=== PATIENT | male | born 2000 | race American Indian/Alaskan Native ===

== ENCOUNTER 2021-06-03 21:51 | Inpatient (IN) | payer SELFPAY ==
[2021-06-03] MEDS ORDERED: ALBUTEROL 2.5 MG/3 ML NEBU IH ONE (21:59)
[2021-06-03] MEDS ORDERED: IPRATROPIUM 0.02% NEBU 2.5 ML IH ONE (21:59)
--- NOTE | 2021-06-03 22:02 | Emergency Department Report ---
History of Present Illness - General Chief Complaint: Overdose Stated Complaint: OVERDOSE Time Seen by Provider: 06/03/21 21:58 Source: patient, EMS Mode of arrival: Stretcher Limitations: No Limitations - History of Present Illness Initial Comments: Chief complaint: "I want a little too hard." HPI: This is a 21-year-old male with history of asthma] who presents status post accidental overdose of Percocet. He took approximately 30 mg of Percocet. He became unresponsive. Oxygen saturation was low according to EMS. He received 2 mg of Narcan via EMS. He awakened immediately. His family member called 911. He has now awake and alert. He is apologetic for his actions. He is not suicidal. He only wanted to get high. He ingests Percocets on a monthly basis. He denies use of alcohol or any other recreational drugs. He denies suicidal ideation. He denies shortness of breath. Patient had persistent hypoxia after becoming awake according to EMS. Tatiana arrived to the emergency department. She gave additional history at the bedside. She stated that patient became unresponsive with deep snoring. She did witness the ingestion of 1 pill. Complaint: accidental overdose -: Sudden, This evening Context: Accidental Overdose: wanted to get high Treatments Prior to Arrival: oxygen, narcan - Related Data Allergies Allergy/AdvReac Type Severity Reaction Status Date / Time No Known Allergies Allergy Verified 06/03/21 22:18 ED Review of Systems ROS: Stated complaint: OVERDOSE Other details as noted in HPI Comment: All other systems reviewed and negative Constitutional: denies: chills, fever, malaise Respiratory: denies: cough, shortness of breath Cardiovascular: denies: chest pain Gastrointestinal: denies: abdominal pain, nausea, vomiting Psychiatric: denies: auditory hallucinations, visual hallucinations, homicidal thoughts, suicidal thoughts Hematological/Lymphatic: denies: as per HPI ED Past Medical Hx - Past Medical History Previous Medical History?: Yes Hx Hypertension: Yes Hx Psychiatric Treatment: Yes (DEPRESSION) Additional medical history: BRONCHITIS - Surgical History Past Surgical History?: No - Social History Smoking Status: Never Smoker Substance Use Type: Prescribed ED Physical Exam - General Limitations: No Limitations General appearance: alert, in no apparent distress - Head Head exam: Present: atraumatic, normocephalic - Eye Eye exam: Present: normal appearance - ENT ENT exam: Present: mucous membranes moist - Neck Neck exam: Present: normal inspection, full ROM - Respiratory Respiratory exam: Present: normal lung sounds bilaterally. Absent: respiratory distress, wheezes, rales - Cardiovascular Cardiovascular Exam: Present: regular rate, normal rhythm, normal heart sounds. Absent: systolic murmur, diastolic murmur, rubs, gallop - GI/Abdominal GI/Abdominal exam: Present: soft, normal bowel sounds. Absent: distended, tenderness, guarding, rebound - Rectal Rectal exam: Present: deferred - Extremities Exam Extremities exam: Present: normal inspection - Back Exam Back exam: Present: normal inspection - Neurological Exam Neurological exam: Present: alert, oriented X3 - Psychiatric Psychiatric exam: Present: normal affect, normal mood - Skin Skin exam: Present: warm, dry, intact, normal color. Absent: rash ED Course Vital Signs 06/03/21 06/03/21 06/03/21 22:01 22:30 22:32 Temperature 98.3 F Pulse Rate 92 H 92 H Pulse Rate [ 93 H Anterior Bilateral Throughout] Respiratory 14 21 Rate Respiratory 16 Rate [Anterior Bilateral Throughout] Blood Pressure 124/74 Blood Pressure 126/77 [Left] O2 Sat by Pulse 85 89 Oximetry 06/03/21 06/03/21 06/03/21 22:45 23:00 23:15 Temperature Pulse Rate 91 H 95 H 99 H Pulse Rate [ Anterior Bilateral Throughout] Respiratory 20 21 26 H Rate Respiratory Rate [Anterior Bilateral Throughout] Blood Pressure 124/71 115/63 137/71 Blood Pressure [Left] O2 Sat by Pulse 90 90 92 Oximetry 06/03/21 06/03/21 06/03/21 23:30 23:45 23:47 Temperature Pulse Rate 100 H 100 H 103 H Pulse Rate [ Anterior Bilateral Throughout] Respiratory 29 H 23 25 H Rate Respiratory Rate [Anterior Bilateral Throughout] Blood Pressure 127/73 127/67 127/67 Blood Pressure [Left] O2 Sat by Pulse 90 90 90 Oximetry 06/04/21 06/04/21 06/04/21 00:00 00:15 00:30 Temperature Pulse Rate 95 H 99 H 99 H Pulse Rate [ Anterior Bilateral Throughout] Respiratory 27 H 31 H 23 Rate Respiratory Rate [Anterior Bilateral Throughout] Blood Pressure 135/69 127/70 114/64 Blood Pressure [Left] O2 Sat by Pulse 93 96 94 Oximetry 06/04/21 06/04/21 06/04/21 00:45 01:00 01:15 Temperature Pulse Rate 93 H 95 H 86 Pulse Rate [ Anterior Bilateral Throughout] Respiratory 20 20 19 Rate Respiratory Rate [Anterior Bilateral Throughout] Blood Pressure 125/62 113/63 113/63 Blood Pressure [Left] O2 Sat by Pulse 91 92 Oximetry - Reevaluation(s) Reevaluation #1: 06/03/21 22:30 Oxygen saturation 81% on room air, 90% on 5 L nasal cannula. Respiratory therapy was called for bronchodilator treatment. Reevaluation #2: 06/03/21 22:45 Oxygen saturation 92% with nebulizer treatment in process, lethargic but arousable snoring when asleep 2 mg Narcan ordered Reevaluation #3: 06/04/21 02:36 Arousable. Protecting airway. Oxygen saturation 90% on 4 L nasal cannula ED Medical Decision Making - Lab Data Result diagrams: 06/03/21 22:47 06/03/21 22:47 - Radiology Data Radiology results: report reviewed Patient Name: ZULEMA BOONE Gender: Male Date of : 2000 Home Phone: Referring Provider: ORALIA BELL Organization: [facility] Accession Number: [id number] Requested Date: June 03, 2021 22:29 Report Status: Final Requested Procedure: 1 Procedure Description: XR chest 1V ap Modality: XR Findings Reporting MD: Sky Devine Dictation Time: June 03, 2021 22:00 Insulation Installer: Not available Deep Submergence Vehicle Operator Date: CHEST 1 VIEW 06/03/2021 10:33 PM INDICATION / CLINICAL INFORMATION: Hypoxia recent overdose. COMPARISON: 07/03/2018. FINDINGS: SUPPORT DEVICES: None. HEART / MEDIASTINUM: No significant abnormality. LUNGS / PLEURA: New soft tissue lesion right paratracheal region measuring 4.3 x 3.5 cm. This may represent an enlarged node. No pneumothorax. ADDITIONAL FINDINGS: No significant additional findings. IMPRESSION: New lesion right paratracheal region. Follow-up CT chest with contrast is recommended. Signer Name: Sky Devine MD Signed: 06/03/2021 10:00 PM Workstation Name: [id number] Patient Name: ZULEMA BOONE Gender: Male Date of : 2000 Referring Provider: ORALIA BELL Organization: [facility] Accession Number: [id number] Requested Date: June 03, 2021 02:07 Report Status: Final Requested Procedure: 1 Procedure Description: CT chest w con Modality: CT Findings Reporting MD: Sky Devine Dictation Time: June 04, 2021 01:22 Insulation Installer: Not available Deep Submergence Vehicle Operator Date: CT CHEST WITH CONTRAST INDICATION / CLINICAL INFORMATION: Soft tissue lesion, RT paratracheal region seen on X-Ray, Hypoxia. TECHNIQUE: Axial CT images were obtained through the chest after IV contrast. All CT scans at this location are performed using CT dose reduction for ALARA by means of automated exposure control. COMPARISON: Chest x-ray aerated the same day. FINDINGS: HEART: No significant abnormality. CORONARY ARTERY CALCIFICATION: None. THORACIC AORTA: No significant abnormality. MEDIASTINUM / TEREZA: Small/moderate hiatal hernia. PLEURA: No pleural effusion. No pneumothorax. LUNGS: Patchy bilateral infiltrates are seen left greater than right. No lung mass is identified. This is likely artifactual. ADDITIONAL FINDINGS: None. UPPER ABDOMEN: No significant abnormality. SKELETAL SYSTEM: No significant abnormality. IMPRESSION: 1. Bilateral pneumonia left greater than right. 2. No lung mass. Signer Name: Sky Devine MD Signed: 06/04/2021 1:22 AM Workstation Name: [id number] - Medical Decision Making Acute respiratory failure hypoxia due to naloxone induced pulmonary edema versus aspiration pneumonitis. Patient given IV Levaquin in the emergency department. Patient continues to require 4 L nasal cannula in spite improved level of consciousness. No lung mass on CT scan. Patient is admitted to hospital service. Critical Care Time: Yes Critical care time in (mins) excluding proc time.: 40 Critical care attestation.: If time is entered above; I have spent that time in minutes in the direct care of this critically ill patient, excluding procedure time. 40 minutes of critical care time excluding procedures were used in the care of the patient. I came immediately to the bedside upon patient's arrival. I obtained history from EMS at the bedside. I discussed treatment plan with the [facility] team members. I reviewed electronic record. I kept the family member informed. Patient required multiple interventions and reassessments. ED Disposition Clinical Impression: Acute respiratory failure with hypoxia, Aspiration pneumonitis, Acute noncar diogenic pulmonary edema, Opioid overdose, Accidental overdose Disposition: 09 ADMITTED INPATIENT Is pt being admited?: Yes Does the pt Need Aspirin: No Condition: Fair Instructions: Pulmonary Edema (ED) Referrals: PRIMARY CARE, [Primary Care Provider] - 3-5 Days
[2021-06-03] MEDS ORDERED: NALOXONE 0.4 MG/1 ML INJ IV ONE ×2 (22:44→23:46)
[2021-06-03] MEDS ORDERED: NALOXONE 2 MG/2 ML INJ IV ONE ×2 (23:00→23:15)
--- NOTE | 2021-06-03 23:05 | XRay Report ---
CHEST 1 VIEW 06/03/2021 10:33 PM INDICATION / CLINICAL INFORMATION: Hypoxia recent overdose. COMPARISON: 07/03/2018. FINDINGS: SUPPORT DEVICES: None. HEART / MEDIASTINUM: No significant abnormality. LUNGS / PLEURA: New soft tissue lesion right paratracheal region measuring 4.3 x 3.5 cm. This may rep resent an enlarged node. No pneumothorax. ADDITIONAL FINDINGS: No significant additional findings. IMPRESSION: New lesion right paratracheal region. Follow-up CT chest with contrast is recommended. Signer Name: Sky Devine MD Signed: 06/03/2021 11:00 PM Workstation Name: [id number]
[2021-06-03 23:17] LABS: Basophils # (Auto) 0.1 K/mm3 (0.0-0.1); Eosinophils % (Auto) 0.2 % (0.0-4.3); Hematocrit 51.6 % (35.5-45.6); Hemoglobin 16.3 gm/dl (11.8-15.2); Lymphocytes % (Auto) 22.8 % (13.4-35.0); Mean Corpuscular HGB Conc 32 % (32-34); Monocytes # (Auto) 0.5 K/mm3 (0.0-0.8); Monocytes % (Auto) 4.1 % (0.0-7.3); Platelet Count 341 K/mm3 (140-440); Red Blood Count 5.78 M/mm3 (3.65-5.03)
[2021-06-03 23:20] LABS: Basophils % (Auto) 0.8 % (0.0-1.8); Mean Corpuscular Volume 89 fl (84-94); Mean Platelet Volume 8.6 fl (6-12); Red Cell Distribution Width 14.2 % (13.2-15.2)
[2021-06-03 23:35] LABS: Calcium 9.1 mg/dL (8.4-10.2)
[2021-06-04] MEDS ORDERED: ONDANSETRON 4 MG/2 ML INJ IV ONE (01:49)
[2021-06-04 02:20] LABS: Band Neutrophils # (Manual) 0.1 K/mm3; Total Cells Counted 100
[2021-06-04 02:21] LABS: Myelocytes # (Manual) 43.4 K/mm3; Promyelocytes # (Manual) 43.4 K/mm3
[2021-06-04 02:22] LABS: Giant Platelets Few; Platelet Estimate Consistent w Auto; RBC Morphology Normal
--- NOTE | 2021-06-04 02:26 | Cat Scan Report ---
CT CHEST WITH CONTRAST INDICATION / CLINICAL INFORMATION: Soft tissue lesion, RT paratracheal region seen on X-Ray, Hypoxia. TECHNIQUE: Axial CT images were obtained through the chest after IV contrast. All CT scans at this [facility] are performed using CT dose reduction for ALARA by means of automated exposure control. COMPARISON: Chest x-ray aerated the same day. FINDINGS: HEART: No significant abnormality. CORONARY ARTERY CALCIFICATION: None. THORACIC AORTA: No significant abnormality. MEDIASTINUM / TEREZA: Small/moderate hiatal hernia. PLEURA: No pleural effusion. No pneumothorax. LUNGS: Patchy bilateral infiltrates are seen left greater than right. No lung mass is identified. Thi s is likely artifactual. ADDITIONAL FINDINGS: None. UPPER ABDOMEN: No significant abnormality. SKELETAL SYSTEM: No significant abnormality. IMPRESSION: 1. Bilateral pneumonia left greater than right. 2. No lung mass. Signer Name: Sky Devine MD Signed: 06/04/2021 2:22 AM Workstation Name: [id number]
[2021-06-04] MEDS ORDERED: ACETAMINOPHEN 325 MG TAB PO PRN (05:02)
[2021-06-04] MEDS ORDERED: oxyCODONE /ACETAMINOPHEN 5-325MG TAB PO PRN (05:02)
[2021-06-04] MEDS ORDERED: HYDROmorphone 1 MG/1 ML INJ IV PRN (05:02)
[2021-06-04] MEDS ORDERED: ALBUTEROL 2.5 MG/3 ML NEBU IH PRN (05:02)
[2021-06-04] MEDS ORDERED: ONDANSETRON 4 MG/2 ML INJ IV PRN (05:02)
--- NOTE | 2021-06-04 05:11 | History and Physical Report ---
History of Present Illness Date of examination: 06/04/21 Date of admission: 06/04/21 Chief complaint: Overdose History of present illness: 21-year-old male with history of asthma] who presents status post accidental overdose of Percocet. He took approximately 30 mg of Percocet. He became unresponsive. Oxygen saturation was low according to EMS. He received 2 mg of Narcan via EMS. He awakened immediately. His family member called 911. He has now awake and alert. He is apologetic for his actions. He is not suicidal. He only wanted to get high. He ingests Percocets on a monthly basis. He denies use of alcohol or any other recreational drugs. He denies suicidal ideation. He denies shortness of breath. Patient had persistent hypoxia after becoming awake according to EMS. In the emergency room patient CT scan of the chest showed bilateral pneumonia left greater than right. No lung mass. WBC is 13.1 initial O2 sat was 81 % on room air, 90 % on 5 L of nasal cannula. Patient is found to have acute respiratory failure with hypoxia, aspiration pneumonitis acute noncardiac genic pulmonary edema, opiate overdose.Patient given IV Levaquin in the emergency department. Patient continues to require 4 L nasal cannula in spite improved level of consciousness. Med rec is not available Past History Past Medical History: hypertension, other (Depression, bronchitis) Medications and Allergies Allergies Allergy/AdvReac Type Severity Reaction Status Date / Time No Known Allergies Allergy Verified 06/03/21 22:18 Review of Systems All systems: negative Constitutional: lethargy Cardiovascular: shortness of breath, dyspnea on exertion Respiratory: shortness of breath, dyspnea on exertion Neurological: change in mentation, other (Unresponsiveness) Exam - Constitutional Vitals: Temp Pulse Resp BP Pulse Ox 98.3 F 89 16 119/74 97 06/03/21 22:01 06/04/21 03:45 06/04/21 03:45 06/04/21 03:45 06/04/21 03:45 Results - Labs CBC & Chem 7: 06/03/21 22:47 06/03/21 22:47 Labs: Laboratory Last Values WBC 13.1 K/mm3 (4.5-11.0) H 06/03/21 22:47 RBC 5.78 M/mm3 (3.65-5.03) H 06/03/21 22:47 Hgb 16.3 gm/dl (11.8-15.2) H 06/03/21 22:47 Hct 51.6 % (35.5-45.6) H 06/03/21 22:47 MCV 89 fl (84-94) 06/03/21 22:47 MCH 28 pg (28-32) 06/03/21 22:47 MCHC 32 % (32-34) 06/03/21 22:47 RDW 14.2 % (13.2-15.2) 06/03/21 22:47 Plt Count 341 K/mm3 (140-440) 06/03/21 22:47 Lymph % (Auto) 22.8 % (13.4-35.0) 06/03/21 22:47 Rice % (Auto) 4.1 % (0.0-7.3) 06/03/21 22:47 Eos % (Auto) 0.2 % (0.0-4.3) 06/03/21 22:47 Baso % (Auto) 0.8 % (0.0-1.8) 06/03/21 22:47 Lymph # (Auto) 3.0 K/mm3 (1.2-5.4) 06/03/21 22:47 Rice # (Auto) 0.5 K/mm3 (0.0-0.8) 06/03/21 22:47 Baso # (Auto) 0.1 K/mm3 (0.0-0.1) 06/03/21 22:47 Add Manual Diff Complete 06/03/21 22:47 Total Counted 100 06/03/21 22:47 Seg Neutrophils % 72.1 % (40.0-70.0) H 06/03/21 22:47 Seg Neuts % (Manual) 70.0 % (40.0-70.0) 06/03/21 22:47 Band Neutrophils % 1.0 % 06/03/21 22:47 Lymphocytes % (Manual) 26.0 % (13.4-35.0) 06/03/21 22:47 Monocytes % (Manual) 3.0 % (0.0-7.3) 06/03/21 22:47 Nucleated RBC % Not Reportable 06/03/21 22:47 Seg Neutrophils # 9.5 K/mm3 (1.8-7.7) H 06/03/21 22:47 Seg Neutrophils # Man 9.2 K/mm3 (1.8-7.7) H 06/03/21 22:47 Band Neutrophils # 0.1 K/mm3 06/03/21 22:47 Lymphocytes # (Manual) 3.4 K/mm3 (1.2-5.4) 06/03/21 22:47 Abs React Lymphs (Man) 0.0 K/mm3 06/03/21 22:47 Monocytes # (Manual) 0.4 K/mm3 (0.0-0.8) 06/03/21 22:47 Eosinophils # (Manual) 0.0 K/mm3 (0.0-0.4) 06/03/21 22:47 Basophils # (Manual) 0.0 K/mm3 (0.0-0.1) 06/03/21 22:47 Metamyelocytes # 0.0 K/mm3 06/03/21 22:47 Myelocytes # 43.4 K/mm3 06/03/21 22:47 Promyelocytes # 43.4 K/mm3 06/03/21 22:47 Blast Cells # 43.4 K/mm3 06/03/21 22:47 WBC Morphology Not Reportable 06/03/21 22:47 Hypersegmented Neuts Not Reportable 06/03/21 22:47 Hyposegmented Neuts Not Reportable 06/03/21 22:47 Hypogranular Neuts Not Reportable 06/03/21 22:47 Smudge Cells Not Reportable 06/03/21 22:47 Toxic Granulation Not Reportable 06/03/21 22:47 Toxic Vacuolation Not Reportable 06/03/21 22:47 Dohle Bodies Not Reportable 06/03/21 22:47 Pelger-Huet Anomaly Not Reportable 06/03/21 22:47 Pan Rods Not Reportable 06/03/21 22:47 Platelet Estimate Consistent w auto 06/03/21 22:47 Clumped Platelets Not Reportable 06/03/21 22:47 Plt Clumps, EDTA Not Reportable 06/03/21 22:47 Large Platelets Not Reportable 06/03/21 22:47 Giant Platelets Few 06/03/21 22:47 Platelet Satelliting Not Reportable 06/03/21 22:47 Plt Morphology Comment Not Reportable 06/03/21 22:47 RBC Morphology Normal 06/03/21 22:47 Dimorphic RBCs Not Reportable 06/03/21 22:47 Polychromasia Not Reportable 06/03/21 22:47 Hypochromasia Not Reportable 06/03/21 22:47 Poikilocytosis Not Reportable 06/03/21 22:47 Anisocytosis Not Reportable 06/03/21 22:47 Microcytosis Not Reportable 06/03/21 22:47 Macrocytosis Not Reportable 06/03/21 22:47 Spherocytes Not Reportable 06/03/21 22:47 Pappenheimer Bodies Not Reportable 06/03/21 22:47 Sickle Cells Not Reportable 06/03/21 22:47 Target Cells Not Reportable 06/03/21 22:47 Tear Drop Cells Not Reportable 06/03/21 22:47 Ovalocytes Not Reportable 06/03/21 22:47 Helmet Cells Not Reportable 06/03/21 22:47 Art-Flint Bodies Not Reportable 06/03/21 22:47 Bryant Rings Not Reportable 06/03/21 22:47 Oscar Cells Not Reportable 06/03/21 22:47 Bite Cells Not Reportable 06/03/21 22:47 Crenated Cell Not Reportable 06/03/21 22:47 Elliptocytes Not Reportable 06/03/21 22:47 Acanthocytes (Spur) Not Reportable 06/03/21 22:47 Rouleaux Not Reportable 06/03/21 22:47 Hemoglobin C Crystals Not Reportable 06/03/21 22:47 Schistocytes Not Reportable 06/03/21 22:47 Malaria parasites Not Reportable 06/03/21 22:47 Waylon Bodies Not Reportable 06/03/21 22:47 Hem Pathologist Commnt No 06/03/21 22:47 Sodium 138 mmol/L (137-145) 06/03/21 22:47 Potassium 3.9 mmol/L (3.6-5.0) 06/03/21 22:47 Chloride 98.9 mmol/L (98-107) 06/03/21 22:47 Carbon Dioxide 25 mmol/L (22-30) 06/03/21 22:47 Anion Gap 18 mmol/L 06/03/21 22:47 BUN 13 mg/dL (9-20) 06/03/21 22:47 Creatinine 1.5 mg/dL (0.8-1.3) H 06/03/21 22:47 Estimated GFR 58 ml/min 06/03/21 22:47 BUN/Creatinine Ratio 9 % 06/03/21 22:47 Glucose 221 mg/dL (75-100) H 06/03/21 22:47 Calcium 9.1 mg/dL (8.4-10.2) 06/03/21 22:47 Salicylates < 0.3 mg/dL (2.8-20.0) L 06/03/21 22:47 Acetaminophen 5.0 ug/mL (10.0-30.0) L 06/03/21 22:47 - Imaging and Cardiology Chest x-ray: report reviewed CT scan - chest: report reviewed Assessment and Plan VTE prophylaxis?: Chemical Plan of care discussed with patient/family: Yes - Patient Problems (1) Acute respiratory failure with hypoxia Current Visit: Yes Status: Acute Plan to address problem: Admit the patient to the medical telemetry. Oxygen via nasal cannula 3 L/min. Albuterol via nebulizer every 4 hours as needed. DuoNeb by nebulizer every 4 hours. Rocephin 2 g IV daily and Zithromax 500 mg IV daily. Blood cultures sputum culture. Will consult pulmonary if needed (2) Acute noncardiogenic pulmonary edema Current Visit: Yes Status: Acute Plan to address problem: Oxygen per nasal cannula 3 L/min. DuoNeb by nebulizer every 4 hours. Lasix 20 milligrams IV daily. Echocardiogram. Fluid restriction. Consult cardiology if needed (3) Aspiration pneumonitis Current Visit: Yes Status: Acute Plan to address problem: Oxygen via nasal cannula 3 L/min. Albuterol via nebulizer every 4 hours as needed. DuoNeb by nebulizer every 4 hours. Rocephin 2 g IV daily and Zithromax 500 mg IV daily. Blood cultures sputum culture. Will consult pulmonary if needed (4) Opioid overdose Current Visit: Yes Status: Acute Plan to address problem: Patient got Narcan. Patient is awake alert now we'll monitor the patient closely we counseled regarding quit taking opioid (5) DVT prophylaxis Current Visit: Yes Status: Acute Plan to address problem: Heparin 5000 units subcu every 8 hours for DVT prophylaxis. Pepcid 20 mg p.o. twice daily for GI prophylaxis. Patient is a full code
[2021-06-04 05:31] LABS: Amphetamine Screen,Urine Negative; Benzodiazepines Screen,Urine Negative; Cocaine Screen,Urine Negative; Methadone Screen,Urine Negative; Opiate Screen,Urine Negative
[2021-06-04 06:00] LABS: Cannabinoid Screen,Urine Positive
[2021-06-04] MEDS ORDERED: AZITHROMYCIN/NS 500 MG/250 ML 500 MG/250 ML BAG IV SCH (06:00)
[2021-06-04] MEDS ORDERED: cefTRIAXone/NS 2 GM/100 ML 2 GM/100 ML BAG IV SCH (06:00)
[2021-06-04] MEDS ORDERED: HEPARIN 5,000 UNIT/1 ML VIAL SUB-Q SCH (06:00)
[2021-06-04] MEDS ORDERED: IPRATROPIUM/ALBUTEROL SULFATE 3 ML AMPUL.NEB IH SCH (08:00)
--- NOTE | 2021-06-04 08:40 | Discharge Summary ---
Providers - Providers Date of Admission: 06/04/21 05:02 Attending physician: LISA LAMA MD Primary care physician: WELDING PROCESS SPECIALIST Hospitalization Condition: Fair Disposition: 01 HOME / SELF CARE / HOMELESS Exam - Constitutional Vitals: Temp Pulse Resp BP Pulse Ox 98.3 F 112 H 19 121/71 97 06/03/21 22:01 06/04/21 07:31 06/04/21 07:31 06/04/21 07:31 06/04/21 07:15 Plan Activity: advance as tolerated, fall precautions Diet: low fat Wound: per your surgeon's advice Special Instructions: record daily weights, smoking cessation Care Plan Goals: Must quit illicit drug use Follow up with: PRIMARY CARE, [Primary Care Provider] - 3-5 Days Prescriptions: levoFLOXacin [Levaquin] 750 mg PO QDAY #7 tablet
[2021-06-04] MEDS ORDERED: FAMOTIDINE 20 MG TAB PO SCH (10:00)
[2021-06-04] MEDS ORDERED: FUROSEMIDE 20 MG/2 ML INJ IV SCH (10:00)
[2021-06-04 10:07] LABS: C-Reactive Protein 7.7 mg/dL (0.00-1.30)
[2021-06-04 11:19] VITALS: BP 129/73
[2021-06-04 11:38] LABS: BUN/Creatinine Ratio 12; Blood Urea Nitrogen 12 mg/dL (9-20); Calcium 9.1 mg/dL (8.4-10.2); Hemolysis Index 23
--- NOTE | 2021-06-04 17:19 | Discharge Summary ---
Providers - Providers Date of Admission: 06/04/21 09:58 Attending physician: LISA LAMA MD 06/04/21 08:53 Consult to Physician [CONS] Routine Comment: Consulting Provider: JOHN CASTELLANOS Physician Instructions: Reason For Exam: hypoxic respiratory failure Primary care physician: [facility] Hospitalization Reason for admission: overdose Condition: Stable Hospital course: 21-year-old male with history of asthma] who presents status post accidental overdose of Percocet. He took approximately 30 mg of Percocet. He became un responsive. Oxygen saturation was low according to EMS. He received 2 mg of Narcan via EMS. He awakened immediately. His family member called 911. He has now awake and alert. He is apologetic for his actions. He is not suicidal. He only wanted to get high. He ingests Percocets on a monthly basis. He denies use of alcohol or any other recreational drugs. He denies suicidal ideation. He denies shortness of breath. Patient had persistent hypoxia after becoming awake according to EMS. In the emergency room patient CT scan of the chest showed bilateral pneumonia left greater than right. No lung mass. WBC is 13.1 initial O2 sat was 81 % on room air, 90 % on 5 L of nasal cannula. Patient is found to have acute respiratory failure with hypoxia, aspiration pneumonitis acute noncardiac genic pulmonary edema, opiate overdose.Patient given IV Levaquin in the emergency department. Patient continues to require 4 L nasal cannula in spite improved level of consciousness. Med rec is not available Initially what I did was to discharge the patient today but on ambulating the patient was profusely hypoxic profoundly. I had a distal extensive discussion with the patient and with his significant other he was agreeable with treatment a D-dimer was checked and was elevated CTA was being arranged for with further hydration to improve renal function but the patient signed out AGAINST MEDICAL ADVICE I did come down and speak with him extensively his fiance said "I may have herbalist and I will take care of him and he will be all right" COVID test was done and is negative (1) Acute respiratory failure with hypoxia Current Visit: Yes Status: Acute Plan to address problem: Admit the patient to the medical telemetry. Oxygen via nasal cannula 3 L/min. Albuterol via nebulizer every 4 hours as needed. DuoNeb by nebulizer every 4 hours. Rocephin 2 g IV daily and Zithromax 500 mg IV daily. Blood cultures sputum culture. Will consult pulmonary if needed (2) Acute noncardiogenic pulmonary edema Current Visit: Yes Status: Acute Plan to address problem: Oxygen per nasal cannula 3 L/min. DuoNeb by nebulizer every 4 hours. Lasix 20 milligrams IV daily. Echocardiogram. Fluid restriction. Consult cardiology if needed (3) Aspiration pneumonitis Current Visit: Yes Status: Acute Plan to address problem: Oxygen via nasal cannula 3 L/min. Albuterol via nebulizer every 4 hours as needed. DuoNeb by nebulizer every 4 hours. Rocephin 2 g IV daily and Zithromax 500 mg IV daily. Blood cultures sputum culture. Will consult pulmonary if needed (4) Opioid overdose Current Visit: Yes Status: Acute Plan to address problem: Patient got Narcan. Patient is awake alert now we'll monitor the patient closely we counseled regarding quit taking opioid (5) DVT prophylaxis Current Visit: Yes Status: Acute Plan to address problem: Heparin 5000 units subcu every 8 hours for DVT prophylaxis. Pepcid 20 mg p.o. twice daily for GI prophylaxis. Patient is a full code Disposition: LEFT AGAINST MEDICAL ADVICE Final Discharge Diagnosis (Prints w/discharge instructions): Acute Hypoxic Respiratory failure with bilateral pneumonia Time spent for discharge: 35 MINS Core Measure Documentation - Palliative Care Palliative Care/ Comfort Measures: Not Applicable - Core Measures Any of the following diagnoses?: none Exam - Physical Exam Narrative exam: VITAL SIGNS: Reviewed. GENERAL: The patient appears normally developed, lethargic, obese vital signs as documented. HEAD: No signs of head trauma. EYES: Pupils are equal. Extraocular motions intact. EARS: Hearing grossly intact. MOUTH: Oropharynx is normal. NECK: No adenopathy, no JVD. CHEST: Chest with clear breath sounds bilaterally. No wheezes, rales, or rhonchi. CARDIAC: Regular rate and rhythm. S1 and S2, without murmurs, gallops, or rubs. VASCULAR: No Edema. Peripheral pulses normal and equal in all extremities. ABDOMEN: Soft, non tender and non distended. No rebound or guarding, and no masses palpated. Bowel Sounds normal. MUSCULOSKELETAL: Good range of motion of all major joints. Extremities without clubbing, cyanosis or edema. NEUROLOGIC EXAM: Alert and oriented x 3 No focal sensory or strength deficits. Speech normal. Follows commands. PSYCHIATRIC: Mood normal. SKIN: detail exam as documented in skin assessment - Constitutional Vitals: Temp Pulse Resp BP Pulse Ox 98.3 F 111 H 21 129/73 88 06/03/21 22:01 06/04/21 11:00 06/04/21 11:00 06/04/21 11:00 06/04/21 11:00 Plan Care Plan Goals: Must quit illicit drug use Follow up with: PRIMARY CARE, [Primary Care Provider] - 3-5 Days Prescriptions: levoFLOXacin [Levaquin] 750 mg PO QDAY #7 tablet
== END 2021-06-04 11:45 | disposition left against medical advice (07) | DRG 917 ==
LOC: ED 21:51 → 4A 06-04 05:02 → OBSVTOIN 06-04 09:58
PROVIDERS: ADMIT Hospitalist; ATTEND Internal Medicine
DX: T40.2X1A Poisoning by other opioids, accidental (unintentional), initial encounter (principal); J69.0 Pneumonitis due to inhalation of food and vomit; J96.01 Acute respiratory failure with hypoxia; I10 Essential (primary) hypertension; Y92.89 Other specified places as the place of occurrence of the external cause; Z20.822 Contact with and (suspected) exposure to COVID-19
CPT/HCPCS: 36415; 71045; 71260; 80048; 80307; 80320; 82728; 82947; 83036; 83615; 84145; 85007; 85025; 85379; 86140; 94644; G0378; G0480; J0456; J0696; J1644; J1956; J2310; J2405; Q9967; U0003